=== PATIENT | female | born 1950 ===

== ENCOUNTER 2022-04-21 13:05 | Outpatient (CLI) | payer MEDICARE | END 2022-04-21 13:06 | disposition home or self-care (01) | LOC: CSHWCC 13:05 | PROVIDERS: ATTEND Nurse Practitioner Family | DX: L97.822 Non-pressure chronic ulcer of other part of left lower leg with fat layer exposed (principal); L97.812 Non-pressure chronic ulcer of other part of right lower leg with fat layer exposed; L97.322 Non-pressure chronic ulcer of left ankle with fat layer exposed; L97.312 Non-pressure chronic ulcer of right ankle with fat layer exposed; R60.0 Localized edema | CPT/HCPCS: 29581; 97139; G0463; 99205 ==

== ENCOUNTER 2022-05-07 09:30 | Outpatient (CLI) | payer MEDICARE | END 2022-05-07 09:31 | disposition home or self-care (01) | LOC: CSHWCC 09:30 | PROVIDERS: ATTEND Nurse Practitioner Family | DX: L97.812 Non-pressure chronic ulcer of other part of right lower leg with fat layer exposed (principal); L97.822 Non-pressure chronic ulcer of other part of left lower leg with fat layer exposed; L97.312 Non-pressure chronic ulcer of right ankle with fat layer exposed; R60.0 Localized edema | CPT/HCPCS: 29581; 87070; 87077; 87186; 87205 ==

== ENCOUNTER 2022-06-16 09:00 | Outpatient (CLI) | payer MEDICARE | END 2022-06-16 09:01 | disposition home or self-care (01) | LOC: CSHWCC 09:00 | PROVIDERS: ATTEND Preventive Medicine Undersea and Hyperbaric Medicine | DX: L97.822 Non-pressure chronic ulcer of other part of left lower leg with fat layer exposed (principal); L97.812 Non-pressure chronic ulcer of other part of right lower leg with fat layer exposed; L97.322 Non-pressure chronic ulcer of left ankle with fat layer exposed; L97.312 Non-pressure chronic ulcer of right ankle with fat layer exposed; L97.811 Non-pressure chronic ulcer of other part of right lower leg limited to breakdown of skin; R60.0 Localized edema | CPT/HCPCS: 29581; 97139; G0463; 99213 ==

== ENCOUNTER 2022-07-02 13:48 | Outpatient (CLI) | payer MEDICARE | END 2022-07-02 13:49 | disposition home or self-care (01) | LOC: CSHWCC 13:48 | PROVIDERS: ATTEND Preventive Medicine Undersea and Hyperbaric Medicine | DX: L97.822 Non-pressure chronic ulcer of other part of left lower leg with fat layer exposed (principal); L97.812 Non-pressure chronic ulcer of other part of right lower leg with fat layer exposed; L97.322 Non-pressure chronic ulcer of left ankle with fat layer exposed; R60.0 Localized edema | CPT/HCPCS: 99214; G0463 ==

== ENCOUNTER 2022-07-16 13:33 | Outpatient (CLI) | payer MEDICARE | END 2022-07-16 13:34 | disposition home or self-care (01) | LOC: CSHWCC 13:33 | PROVIDERS: ATTEND Preventive Medicine Undersea and Hyperbaric Medicine | DX: L97.812 Non-pressure chronic ulcer of other part of right lower leg with fat layer exposed (principal); L97.822 Non-pressure chronic ulcer of other part of left lower leg with fat layer exposed; L97.322 Non-pressure chronic ulcer of left ankle with fat layer exposed ==

== ENCOUNTER 2022-08-13 09:17 | Outpatient (CLI) | payer MEDICARE | END 2022-08-13 09:18 | disposition home or self-care (01) | LOC: CSHWCC 09:17 | PROVIDERS: ATTEND Nurse Practitioner Family | DX: L97.822 Non-pressure chronic ulcer of other part of left lower leg with fat layer exposed (principal); L97.812 Non-pressure chronic ulcer of other part of right lower leg with fat layer exposed; L97.322 Non-pressure chronic ulcer of left ankle with fat layer exposed; R60.0 Localized edema | CPT/HCPCS: 97139; G0463; 99214 ==

== ENCOUNTER 2022-09-10 13:12 | Outpatient (CLI) | payer MEDICARE | END 2022-09-10 13:13 | disposition home or self-care (01) | LOC: CSHWCC 13:12 | PROVIDERS: ATTEND Nurse Practitioner Family | DX: L97.822 Non-pressure chronic ulcer of other part of left lower leg with fat layer exposed (principal); R60.0 Localized edema | CPT/HCPCS: 97139; G0463; 99214 ==

== ENCOUNTER 2022-10-08 12:56 | Outpatient (CLI) | payer MEDICARE | END 2022-10-08 12:57 | disposition home or self-care (01) | LOC: CSHWCC 12:56 | PROVIDERS: ATTEND Nurse Practitioner Family | DX: L97.822 Non-pressure chronic ulcer of other part of left lower leg with fat layer exposed (principal); L97.812 Non-pressure chronic ulcer of other part of right lower leg with fat layer exposed; L97.312 Non-pressure chronic ulcer of right ankle with fat layer exposed; R60.0 Localized edema | CPT/HCPCS: 97139; G0463; 99215 ==

== ENCOUNTER 2022-11-19 12:46 | Outpatient (CLI) | payer MEDICARE | END 2022-11-19 12:47 | disposition home or self-care (01) | LOC: CSHWCC 12:46 | PROVIDERS: ATTEND Nurse Practitioner Family | DX: L97.822 Non-pressure chronic ulcer of other part of left lower leg with fat layer exposed (principal); L97.812 Non-pressure chronic ulcer of other part of right lower leg with fat layer exposed; L97.312 Non-pressure chronic ulcer of right ankle with fat layer exposed; R60.0 Localized edema ==

== ENCOUNTER 2022-12-03 13:15 | Outpatient (CLI) | payer MEDICARE | END 2022-12-03 13:16 | disposition home or self-care (01) | LOC: CSHWCC 13:15 | PROVIDERS: ATTEND Nurse Practitioner Family | DX: L97.812 Non-pressure chronic ulcer of other part of right lower leg with fat layer exposed (principal); L97.822 Non-pressure chronic ulcer of other part of left lower leg with fat layer exposed; L97.312 Non-pressure chronic ulcer of right ankle with fat layer exposed; R60.0 Localized edema | CPT/HCPCS: 97139; G0463; 99214 ==

== ENCOUNTER 2022-12-17 13:39 | Outpatient (CLI) | payer MEDICARE | END 2022-12-17 13:40 | disposition home or self-care (01) | LOC: CSHWCC 13:39 | PROVIDERS: ATTEND Nurse Practitioner Family | DX: L97.822 Non-pressure chronic ulcer of other part of left lower leg with fat layer exposed (principal); L97.812 Non-pressure chronic ulcer of other part of right lower leg with fat layer exposed; L97.312 Non-pressure chronic ulcer of right ankle with fat layer exposed; R60.0 Localized edema | CPT/HCPCS: 97139; G0463; 99214 ==

== ENCOUNTER 2023-01-14 13:00 | Outpatient (CLI) | payer MEDICARE | END 2023-01-14 13:01 | disposition home or self-care (01) | LOC: CSHWCC 13:00 | PROVIDERS: ATTEND Nurse Practitioner Family | DX: L97.812 Non-pressure chronic ulcer of other part of right lower leg with fat layer exposed (principal); L97.312 Non-pressure chronic ulcer of right ankle with fat layer exposed; L97.822 Non-pressure chronic ulcer of other part of left lower leg with fat layer exposed; R60.0 Localized edema ==

== ENCOUNTER 2023-04-01 13:41 | Outpatient (CLI) | payer MEDICARE | END 2023-04-01 13:42 | disposition home or self-care (01) | LOC: CSHWCC 13:41 | PROVIDERS: ATTEND Nurse Practitioner Family | DX: L97.822 Non-pressure chronic ulcer of other part of left lower leg with fat layer exposed (principal); L97.812 Non-pressure chronic ulcer of other part of right lower leg with fat layer exposed; L97.312 Non-pressure chronic ulcer of right ankle with fat layer exposed; R60.0 Localized edema | CPT/HCPCS: 29581 ×2; 97139; G0463; 99213 ==

== ENCOUNTER 2023-05-13 13:01 | Outpatient (CLI) | payer MEDICARE | END 2023-05-13 13:02 | disposition home or self-care (01) | LOC: CSHWCC 13:01 | PROVIDERS: ATTEND Nurse Practitioner Family | DX: R60.0 Localized edema (principal); L97.812 Non-pressure chronic ulcer of other part of right lower leg with fat layer exposed; L97.822 Non-pressure chronic ulcer of other part of left lower leg with fat layer exposed | CPT/HCPCS: 97597 ==

== ENCOUNTER 2023-06-10 13:03 | Outpatient (CLI) | payer MEDICARE | END 2023-06-10 13:04 | disposition home or self-care (01) | LOC: CSHWCC 13:03 | PROVIDERS: ATTEND Nurse Practitioner Family | DX: R60.0 Localized edema (principal); L97.822 Non-pressure chronic ulcer of other part of left lower leg with fat layer exposed; L97.812 Non-pressure chronic ulcer of other part of right lower leg with fat layer exposed | CPT/HCPCS: 97602 ==